=== PATIENT | male | born 1960 | race Caucasian/White ===

== ENCOUNTER → 2018-05-22 | Outpatient (CLI) | payer BC | LOC: RAD 10:58 | DX: M25.831 Other specified joint disorders, right wrist (principal); M25.531 Pain in right wrist; Z91.81 History of falling ==

== ENCOUNTER 2022-07-19 10:56 | Outpatient (RCR) | payer OTHER | END 2022-08-18 | disposition home or self-care (01) | LOC: PT | DX: S46.012A Strain of muscle(s) and tendon(s) of the rotator cuff of left shoulder, initial encounter (principal); S46.011A Strain of muscle(s) and tendon(s) of the rotator cuff of right shoulder, initial encounter; X58.XXXA Exposure to other specified factors, initial encounter ==

== ENCOUNTER → 2023-02-21 | Outpatient (CLI) | payer OTHER | END | disposition home or self-care (01) | LOC: PT 10:08 | DX: M25.511 Pain in right shoulder (principal) ==

== ENCOUNTER 2023-03-21 08:00 | Outpatient (RCR) | payer OTHER | END 2023-04-19 | disposition home or self-care (01) | LOC: PT | DX: M25.511 Pain in right shoulder (principal); Z98.890 Other specified postprocedural states ==

== ENCOUNTER 2023-07-05 08:00 | Outpatient (RCR) | payer OTHER | END 2023-07-19 | disposition home or self-care (01) | LOC: PT | DX: M25.511 Pain in right shoulder (principal) ==

== ENCOUNTER 2023-07-10 13:03 | Outpatient (RCR) | payer MEDICAID | END 2023-07-19 | LOC: PT | DX: M25.511 Pain in right shoulder (principal) ==

== ENCOUNTER 2023-10-30 14:37 | Outpatient (RCR) | payer MEDICAID | END 2023-11-18 | LOC: PT | DX: M25.512 Pain in left shoulder (principal); Z98.890 Other specified postprocedural states ==

== ENCOUNTER 2023-12-20 10:21 | Outpatient (RCR) | payer SELFPAY | END 2024-01-18 16:02 | disposition home or self-care (01) | LOC: PT 10:21 | DX: M25.512 Pain in left shoulder (principal); Z98.890 Other specified postprocedural states ==